=== PATIENT | female | born 2000 | race Caucasian/White ===

== ENCOUNTER 2019-02-24 12:12 | Outpatient (CLI) ==
--- NOTE | 2019-02-24 13:22 | US ---
EXAM: Transvaginal pelvic ultrasound. History: Irregular menses. Technique: Multiple sonographic images through the pelvis were obtained. Color duplex Doppler was u sed to interrogate vascular flow. Findings: The uterus measures 7.0 cm x 3.2 cm x 3.8 cm. Endometrium measures 0.7 cm in thickness. Small amoun t of free pelvic fluid. Both ovaries are normal in size. Blood flow is documented within each ovary. A few incidental domin ant follicles are seen within each ovary. No suspicious adnexal masses. Impression: Pelvic ultrasound within normal limits for patient's age.
== END 2019-02-24 12:13 | disposition home or self-care (01) ==
LOC: RAD 12:12
PROVIDERS: ATTEND Physician Assistant
DX: N92.6 Irregular menstruation, unspecified (principal)